=== PATIENT | female | born 1955 | race Caucasian/White ===

== ENCOUNTER 2017-09-10 01:55 | Emergency (ER) | payer OTHER ==
[2017-09-10] MEDS ORDERED: NS 0.9% 1000 ML* 1,000 ML IV ONE ×2 (02:22→03:16)
[2017-09-10] MEDS ORDERED: Metoclopramide IV* 5 MG/ML 2 ML VIAL IV SLOW PU ONE (02:22)
[2017-09-10 02:59] LABS: ABS Basophils 0.1 10^3/ul (0-0.2); ABS Eosinophils 0 10^3/ul (0-0.6); ABS Lymphocytes 1.1 10^3/ul (1.0-4.8); ABS Monocytes 0.7 10^3/ul (0-0.8); ABS Neutrophils 6.3 10^3/ul (1.5-7.7); Hematocrit 33 % (35-47); Hemoglobin 11.5 g/dl (12.0-16.0); Mean Corpuscular HGB Conc 35 g/dl (31-36); Mean Corpuscular Hemoglobin 38 pg (27-31); Mean Corpuscular Volume 108 fL (80-97); Mean Platelet Volume 7.4 um3 (7.4-10.4); Platelet Count 170 10^3/ul (150-450); Red Blood Count 3.03 10^6/ul (4.00-5.40); Red Cell Distribution Width 13 % (10.5-15); White Blood Count 8.1 10^3/ul (3.5-10.8)
[2017-09-10 02:59] LABS: INR 1.24 (0.77-1.02)
[2017-09-10 03:10] LABS: ABS Nucleated RBC 0 10^3/ul; Eosinophil % 0.1 % (0-6); Lymphocyte % 13.1 % (25-47); Nucleated Red Blood Cells % 0
[2017-09-10 03:11] LABS: EGFR Non-African American 103.3 (>60)
[2017-09-10] MEDS ORDERED: Potassium Chlor TAB* 20 MEQ TAB.ER PO ONE (03:26)
[2017-09-10] MEDS ORDERED: Iohexol 300* (CONTRAST) 10 ML SDV IV ONE (03:53)
[2017-09-10] MEDS ORDERED: NS 0.9% 1000 ML* 1,000 ML IV SCH (04:45)
[2017-09-10 05:04] LABS: Urine Appearance Clear; Urine Blood Negative (Negative); Urine Color Colorless; Urine Ketones Negative (Negative); Urine Protein Negative (Negative); Urine Specific Gravity 1.015 (1.010-1.030); Urine Urobilinogen Negative (Negative)
[2017-09-10 06:19] VITALS: BP 148/98
--- NOTE | 2017-09-10 06:22 | ED ---
Michelle Lim Jade, scribed for Ramona Coy MD on 09/10/17 at 0224 . GI/ HPI - HPI Summary HPI Summary: Pt is a 62 y/o female who presents to the ED c/o N/V/D for 2 days. She states she also has been having coffee ground emesis, decreased appetite, and intermittent 6/10 abdominal pain. Her symptoms have been worsening. Pt denies any fever, and has not taken any medications for her symptoms. PMHx HTN. - History of Current Complaint Chief Complaint: EDGIBleed Time Seen by Provider: 09/10/17 02:02 Stated Complaint: VOMITING Hx Obtained From: Patient Onset/Duration: Started Days Ago - 2, Worse Since Timing: Constant Current Severity: Moderate Pain Intensity: 6 Location of Pain: Diffuse - Abdominal Associated Signs and Symptoms: Positive: Hematemesis - Black, Nausea, Vomiting, Diarrhea, Change in Appetite - Decreased, Abdominal Pain. Negative: Fever Aggravating Factor(s): Nothing Alleviating Factor(s): Nothing - Allergy/Home Medications Allergies/Adverse Reactions: Allergies Allergy/AdvReac Type Severity Reaction Status Date / Time Penicillins Allergy Swelling Verified 09/10/17 01:59 Home Medications: Home Medications NK [No Home Medications Reported] 09/10/17 [History Confirmed 09/10/17] PMH/Surg Hx/FS Hx/Imm Hx Cardiovascular History: Reports: Other Cardiovascular Problems/Disorders - Unknown - will not see a PCP Respiratory History: Reports: Other Respiratory Problems/Disorders - Bronchitis Infectious Disease History: No Infectious Disease History: Denies: Traveled Outside the [place] in Last 30 Days - Family History Known Family History: Positive: Cardiac Disease - Social History Alcohol Use: Daily Substance Use Type: Reports: None Smoking Status (MU): Current Every Day Smoker Review of Systems Negative: Fever Positive: Abdominal Pain, Vomiting, Diarrhea, Nausea, Other - Decreased appetite All Other Systems Reviewed And Are Negative: Yes Physical Exam - Summary Physical Exam Summary: VITAL SIGNS: Reviewed. GENERAL: Patient is a well-developed and nourished FEMALE who is lying comfortable in the stretcher. Patient is not in any acute respiratory distress. HEAD AND FACE: No signs of trauma. No ecchymosis, hematomas or skull depressions. No sinus tenderness. EYES: PERRLA, EOMI x 2, No injected conjunctiva, no nystagmus. EARS: Hearing grossly intact. Ear canals and tympanic membranes are within normal limits. MOUTH: Oropharynx within normal limits. NECK: Supple, trachea is midline, no adenopathy, no JVD, no carotid bruit, no c- spine tenderness, neck with full ROM. CHEST: Symmetric, no tenderness at palpation LUNGS: Clear to auscultation bilaterally. No wheezing or crackles. CVS: Regular rate and rhythm, S1 and S2 present, no murmurs or gallops appreciated. ABDOMEN: Soft, non-tender. No signs of distention. No rebound no guarding, and no masses palpated. Bowel sounds are normal. EXTREMITIES: FROM in all major joints, no edema, no cyanosis or clubbing. NEURO: Alert and oriented x 3. No acute neurological deficits. Speech is normal and follows commands. SKIN: Dry and warm RECTAL: No masses, no hemorrhoids. Empty rectum. Triage Information Reviewed: Yes Vital Signs On Initial Exam: Initial Vitals Temp Pulse Resp BP Pulse Ox 97.5 F 92 20 189/73 100 09/10/17 01:59 09/10/17 01:59 09/10/17 01:59 09/10/17 01:59 09/10/17 01:59 Vital Signs Reviewed: Yes Diagnostics - Vital Signs Vital Signs Temp Pulse Resp BP Pulse Ox 09/10/17 01:59 97.5 F 92 20 189/73 100 - Laboratory Result Diagrams: 09/10/17 02:39 09/10/17 02:38 Lab Statement: Any lab studies that have been ordered have been reviewed, and results considered in the medical decision making process. - CT CT A/P CT Interpretation: No Acute Changes - 4:31 There is no acute abdominal or pelvis process. ED physician reviewed this imaging report. CT Interpretation Completed By: Bo COOPER Course/Dx - Course Course Of Treatment: Pt is a 62 y/o female c/o N/V/D, coffee ground emesis, decreased appetite, and abdominal pain for 2 days. Her symptoms have been worsening, and she denies any fever. A physical exam was normal. A rectal exam revealed no masses, no hemorrhoids, and empty rectum. A CT A/P revealed no acute process. Final dx is gastroenteritis. Pt is discharged, and is agreeable with this plan. - Diagnoses Provider Diagnoses: Gastroenteritis Discharge - Sign-Out/Discharge Documenting (check all that apply): Discharge/Admit/Transfer - Discharge - Discharge Plan Condition: Stable Disposition: HOME Patient Education Materials: Gastroenteritis (ED) Referrals: [facility] [place] [facility] [Outside] - 2 Days Additional Instructions: RETURN TO THE EMERGENCY DEPARTMENT FOR CHANGING OR WORSENING SYMPTOMS The documentation as recorded by the Michelle rivero Jade accurately reflects the service I personally performed and the decisions made by me, Ramona Coy MD.
--- NOTE | 2017-09-10 07:43 | RAD ---
CLINICAL HISTORY: Abd pain COMPARISON: None TECHNIQUE: Multiple contiguous axial CT scans were obtained of the abdomen and pelvis after the administration of intravenous contrast. Coronal and sagittal multiplanar reformations are submitted for review. Oral contrast was not administered. Delayed images were obtained through the abdomen. FINDINGS: LUNG BASES: The lung bases are clear. LIVER: The liver is diffusely low in attenuation compared to the spleen. There are no focal hepatic parenchymal masses. BILE DUCTS: There is no intrahepatic or extrahepatic biliary dilatation. GALLBLADDER: The gallbladder is normal, without pericholecystic inflammatory change. PANCREAS: The pancreas is normal, without mass or ductal dilatation. SPLEEN: Normal in size and appearance. UPPER GI TRACT: Evaluation of the gastrointestinal tract is limited by incomplete gastric distention. The upper GI tract is unremarkable. SMALL BOWEL AND MESENTERY: The small bowel is normal in contour, course, and caliber. There is no obstruction or dilatation. COLON: The colon is normal in contour, course, caliber. There is no pericolonic inflammatory change. ADRENALS: Normal bilaterally. KIDNEYS: The kidneys are normal in shape, size, contour, and axis. There is no hydronephrosis or nephrolithiasis. BLADDER: The bladder is smooth in contour. PELVIC ORGANS: The uterus and adnexa are grossly normal for technique. AORTA: There is calcific atherosclerotic disease of the abdominal aorta and its branches, without aneurysmal dilatation IVC: Unremarkable LYMPH NODES: There is no lymphadenopathy by size criteria. ABDOMINAL WALL: There is no evidence for abdominal wall hernia. BONES AND SOFT TISSUES: There are bilateral pars defects at L5 with trace anterolisthesis of L5 on S1. OTHER: None IMPRESSION: 1. FATTY INFILTRATION OF THE LIVER. 2. ATHEROSCLEROSIS. 3. 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
== END 2017-09-10 06:17 | disposition home or self-care (01) ==
LOC: ED 01:55
DX: K52.9 Noninfective gastroenteritis and colitis, unspecified (principal); I10 Essential (primary) hypertension; F17.200 Nicotine dependence, unspecified, uncomplicated; Z88.0 Allergy status to penicillin
CPT/HCPCS: 36415; 74177; 80053; 81003; 82150; 83605; 83690; 83735; 85025; 85610; 85730; 86140; 96361; 96374; 99283; A9270-GY; J2765; Q9967

== ENCOUNTER 2017-12-24 16:14 | Emergency (ER) | payer OTHER ==
--- NOTE | 2017-12-24 17:13 | ED ---
Throat Pain/Nasal Congestion - HPI Summary HPI Summary: 62-year-old female presents with sinus congestion and ear pain for the past month. States it feels like a pressure. She denies any headache. She states she has Mnire's so has vertigo chronically. She admits to her chronic cough. She denies any chest pain or shortness breath. No fevers. States she's been trying Sudafed with minimal relief. she states that her neck feels swollen in her glands. She denies any history of allergies. No abdominal pain. No nausea vomiting. No one else sick. She denies any fatigue. No other symptoms. - History of Current Complaint Chief Complaint: EDGeneral Time Seen by Provider: 12/24/17 16:42 - Allergies/Home Medications Allergies/Adverse Reactions: Allergies Allergy/AdvReac Type Severity Reaction Status Date / Time ampicillin Allergy Swelling Verified 12/24/17 16:30 Penicillins Allergy Swelling Verified 12/24/17 16:30 PMH/Surg Hx/FS Hx/Imm Hx Endocrine/Hematology History: Denies: Hx Diabetes Cardiovascular History: Reports: Other Cardiovascular Problems/Disorders - Unknown - will not see a PCP Denies: Hx Hypertension Respiratory History: Reports: Other Respiratory Problems/Disorders - Bronchitis History: Denies: Hx Renal Disease EENT History: Reports: Other - menierre Infectious Disease History: No Infectious Disease History: Denies: Traveled Outside the [place] in Last 30 Days - Family History Known Family History: Positive: Cardiac Disease - Social History Alcohol Use: Daily Alcohol Amount: beer 6 to 8 per day Substance Use Type: Reports: None Smoking Status (MU): Heavy Every Day Tobacco Smoker Review of Systems Negative: Fever Positive: Ear Ache, Nasal Discharge Negative: Chest Pain Positive: Cough - chronic. Negative: Shortness Of Breath All Other Systems Reviewed And Are Negative: Yes Physical Exam Triage Information Reviewed: Yes Vital Signs On Initial Exam: Initial Vitals Temp Pulse Resp BP Pulse Ox 97.2 F 79 16 163/76 99 12/24/17 16:16 12/24/17 16:16 12/24/17 16:16 12/24/17 16:16 12/24/17 16:16 Vital Signs Reviewed: Yes Appearance: Positive: Well-Appearing Skin: Positive: Warm, Dry Head/Face: Positive: Normal Head/Face Inspection Eyes: Positive: Normal, EOMI, HETAL, Conjunctiva Clear ENT: Positive: Pharynx normal, Nasal congestion, TMs normal - fluids behind, Sinus tenderness Neck: Positive: Supple, Nontender, No Lymphadenopathy Respiratory/Lung Sounds: Positive: Clear to Auscultation, Breath Sounds Present Cardiovascular: Positive: Normal, RRR Abdomen Description: Positive: Nontender, Soft Bowel Sounds: Positive: Present Musculoskeletal: Positive: Normal Neurological: Positive: Normal Psychiatric: Positive: Normal Diagnostics - Vital Signs Vital Signs Temp Pulse Resp BP Pulse Ox 12/24/17 16:16 97.2 F 79 16 163/76 99 - Laboratory Lab Statement: Any lab studies that have been ordered have been reviewed, and results considered in the medical decision making process. EENT Course/Dx - Course Course Of Treatment: 62-year-old female presents with sinus congestion and ear pain for the past month. States it feels like a pressure. She denies any headache. She states she has Mnire's so has vertigo chronically. She admits to her chronic cough. She denies any chest pain or shortness breath. No fevers. States she's been trying Sudafed with minimal relief. she states that her neck feels swollen in her glands. She denies any history of allergies. No abdominal pain. No nausea vomiting. No one else sick. She denies any fatigue. No other symptoms. On exam tenderness over sinuses. Ears TMs normal with fluid behind. Will treat with Flonase and azithromycin for sinus infection. patient decline chest xray. told to get primary to follow up. Patient understands agrees with plan. - Differential Diagnoses Differential Diagnoses: Otitis Media, Sinusitis, URI/Bronchitis - Diagnoses Provider Diagnoses: Sinusitis Discharge - Sign-Out/Discharge Documenting (check all that apply): Patient Departure - Discharge Plan Condition: Good Disposition: HOME Prescriptions: Azithromycin TAB* [Zithromax TAB (Z-GIOVANY) 250 mg #6 tabs] 250 mg PO DAILY #4 tab Patient Education Materials: Sinusitis (ED) [place]: [facility] [place] [facility] [place]] Additional Instructions: It is important that you establish care with a primary to follow up about symptoms take antibiotics once a day for 4 more days Use intranasal steroid one spray each nostril twice a day Take Tylenol every 6 hours as needed for pain Return to ED if develop any new or worsening symptoms - Billing Disposition and Condition Condition: GOOD Disposition: Home
[2017-12-24] MEDS ORDERED: Azithromycin TAB* 250 MG PO ONE (17:31)
[2017-12-24 17:44] VITALS: BP 107/57
== END 2017-12-24 17:43 | disposition home or self-care (01) ==
LOC: ED 16:14
DX: J32.9 Chronic sinusitis, unspecified (principal); Z88.0 Allergy status to penicillin; F17.200 Nicotine dependence, unspecified, uncomplicated
CPT/HCPCS: 99282; A9270-GY

== ENCOUNTER 2018-07-04 11:15 | Emergency (ER) | payer OTHER ==
--- NOTE | 2018-07-04 13:14 | ED ---
Adult Trauma - HPI Summary HPI Summary: Pt is a 63 y/o F presenting to the ED with a chief complaint of falls. She states she usually watches television in the kitchen, and she falls asleep while watching. She reports hitting her head twice, twisting her ankle, and myalgias in her L-sided ribs, neck, back, and L arm. She states her L wrist is very weak. She denies LOC when falling. She also states these falls have occurred more frequently since being dxed with throat CA. - History of Current Complaint Chief Complaint: EDFall Stated Complaint: RIB INJURY PER RADIOLOGY Time Seen by Provider: 07/04/18 12:42 Hx Obtained From: Patient Mechanism of Injury: Fall Ambulatory at the Scene: Yes Loss of Consciousness: no loss of consciousness Onset Severity: Moderate Current Severity: Moderate Pain Intensity: 8 Pain Scale Used: 0-10 Numeric Location: Neck, Chest - ribs, Back, Extremities Character: Sharp Aggravating Factor(s): Movement Alleviating Factor(s): Nothing Associated Signs & Symptoms: Positive: Numbness/Weakness - L hand, Ecchymosis. Negative: Loss of Consciousness - Allergy/Home Medications Allergies/Adverse Reactions: Allergies Allergy/AdvReac Type Severity Reaction Status Date / Time ampicillin Allergy Swelling Verified 04/05/18 12:45 ibuprofen Allergy Swelling Verified 07/04/18 11:24 Penicillins Allergy Swelling Verified 04/05/18 12:45 Home Medications: Home Medications Prednisolone Acetate/Pf [Prednisolone Acet 1% Eye Drop] 5 ml OPHTHALMIC DAILY [History Confirmed 07/04/18] PMH/Surg Hx/FS Hx/Imm Hx Previously Healthy: No Endocrine/Hematology History: Denies: Hx Diabetes Cardiovascular History: Reports: Other Cardiovascular Problems/Disorders - Unknown - will not see a PCP Denies: Hx Hypertension Respiratory History: Reports: Other Respiratory Problems/Disorders - Bronchitis History: Denies: Hx Renal Disease Infectious Disease History: No Infectious Disease History: Denies: Traveled Outside the [place] in Last 30 Days - Family History Known Family History: Positive: Cardiac Disease - Social History Alcohol Use: Daily Alcohol Amount: beer 6 to 8 per day; wine coolers 2-3 a day Hx Substance Use: No Substance Use Type: Reports: None Hx Tobacco Use: Yes Smoking Status (MU): Heavy Every Day Tobacco Smoker Review of Systems Positive: Myalgia Positive: Bruising Positive: Weakness All Other Systems Reviewed And Are Negative: Yes Physical Exam - Summary Physical Exam Summary: Appearance: The patient is well-nourished in no acute distress and in no acute pain. Skin: The skin is warm and dry and skin color reflects adequate perfusion. HEENT: The head is normocephalic and atraumatic. The pupils are equal and reactive. The conjunctivae are clear and without drainage. Nares are patent and without drainage. Mouth reveals moist mucous membranes and the throat is without erythema and exudate. The external ears are intact. The ear canals are patent and without drainage. The tympanic membranes are intact. Neck: The neck is supple with full range of motion and non-tender. There are no carotid bruits. There is no neck vein distension. Respiratory: Chest is non-tender. Lungs are clear to auscultation and breath sounds are symmetrical and equal. Cardiovascular: Heart is regular rate and rhythm. There is no murmur or rub auscultated. There is no peripheral edema and pulses are symmetrical and equal. Abdomen: The abdomen is soft and non-tender. There are normal bowel sounds heard in all four quadrants and there is no organomegaly palpated. Musculoskeletal: Her LUE is weak to forearm extensors and vice president of brand management. There is good capillary refill. There is no peripheral edema or calf tenderness elicited. Pt is tender over L posterior axillary line, and tender in the L rhomboid area. Neurological: Patient is alert and oriented to person, place and time. The patient has symmetrical motor strength in all four extremities. Cranial nerves are grossly intact. Deep tendon reflexes are symmetrical and equal in all four extremities. Psychiatric: The patient has an appropriate affect and does not exhibit any anxiety or depression. Triage Information Reviewed: Yes Vital Signs On Initial Exam: Initial Vitals Temp Pulse Resp BP Pulse Ox 98.6 F 82 16 164/93 98 07/04/18 11:19 07/04/18 11:19 07/04/18 11:19 07/04/18 11:19 07/04/18 11:19 Vital Signs Reviewed: Yes Diagnostics - Vital Signs Vital Signs Temp Pulse Resp BP Pulse Ox 07/04/18 11:19 98.6 F 82 16 164/93 98 - Laboratory Result Diagrams: 07/04/18 13:42 07/04/18 13:42 Lab Statement: Any lab studies that have been ordered have been reviewed, and results considered in the medical decision making process. - Radiology CXR Radiology Interpretation Completed By: Radiologist Summary of Radiographic Findings: No active cardiopulmonary disease is noted. ED physician has reviewed this report. - CT C-spine CT CT Interpretation Completed By: Radiologist Summary of CT Findings: 1. DEGENERATIVE DISC DISEASE AND OSTEOARTHRITIS. 2. ATHEROSCLEROSIS. 3. NO ACUTE OSSEOUS INJURY TO THE CERVICAL SPINE. ED physician has reviewed this report. Brain CT CT Interpretation Completed By: Radiologist Summary of CT Findings: NO ACUTE INTRACRANIAL PATHOLOGY. CHRONIC SMALL VESSEL ISCHEMIC CHANGE. ED physician has reviewed this report. Adult Trauma Course/Dx - Course Course Of Treatment: Ms. Morales presented to the emergency department with several different complaints. It was hard to get a coherent history from her. She states that she normally watches TV at night in the kitchen in her wheelchair and sometimes she falls asleep and falls out of the wheelchair. She says now she's got a wheelchair fixed up so that won't happen. The last time she fell was 2 nights ago and she said she landed on her face. She comes in complaining of pain in her left posterior chest which she describes as ribs. She is complaining of pain in her left wrist and having twisted her ankle although it doesn't hurt. Almost as an aside she complains that her left arm isn't working very well. Her left wrist and left ankle were not swollen or tender. She was tender in the left rhomboid area as well as left posterior axillary line on her chest. She had a wrist drop. She was unable to extend at the wrist and her vice president of brand management was weak. She could flex at the wrist although weakly. She had good strength in biceps and triceps. Neurovascular were intact in the hand. A CT of her head and neck were obtained because of my concern that she has history of drinking and she fell 2 days ago. These were negative for any acute fracture. Labs were obtained and were within normal limits aside from a mildly elevated CRP. I spoke with Dr. Trivedi as this seems like a peripheral palsy. It's been there a couple of days and it's unclear how much she'll improve. He will see her on Saturday afternoon. - Diagnoses Provider Diagnoses: Rib contusion, Axillary nerve palsy Discharge - Sign-Out/Discharge Documenting (check all that apply): Patient Departure Patient Received Moderate/Deep Sedation with Procedure: No - Discharge Plan Condition: Stable Disposition: HOME Prescriptions: oxyCODONE/Acetamin 5/325 MG* [Percocet 5/325 TAB*] 1 tab PO Q6H PRN #20 tab MDD 4 PRN Reason: Pain Referrals: Waqas Trivedi MD [Medical Doctor] - Additional Instructions: You have an appointment with Dr. Trivedi on Saturday, July 07, at 1:00pm. Please take your prescribed medications as instructed. Follow up with your primary care provider within the next 2-3 days. Return to the ED with any new or worsening symptoms. - Billing Disposition and Condition Condition: STABLE Disposition: Home - Attestation Statements Document Initiated by Scribe: Yes Documenting Scribe: Hazel Anderson Provider For Whom Tom is Documenting (Include Credential): Jacques Conteh MD. Scribe Attestation: Hazel Lim, scribed for Jacques Conteh MD. on 07/04/18 at 1730. Scribe Documentation Reviewed: Yes Provider Attestation: The documentation as recorded by the Hazel rivero accurately reflects the service I personally performed and the decisions made by me, Jacques Conteh MD. Status of Scribe Document: Viewed Consult Consult: [id number] - Spoke with Dr. Trivedi about the pt's condition who will be seeing the pt on 07/07 as followup.
[2018-07-04 13:55] LABS: ABS Basophils 0.1 10^3/ul (0-0.2); ABS Eosinophils 0.1 10^3/ul (0-0.6); ABS Lymphocytes 1.2 10^3/ul (1.0-4.8); ABS Monocytes 0.7 10^3/ul (0-0.8); ABS Neutrophils 6.2 10^3/ul (1.5-7.7); ABS Nucleated RBC 0 10^3/ul; Eosinophil % 0.7 %; Hematocrit 38 % (33-41); Hemoglobin 12.9 g/dL (12.0-16.0); Mean Corpuscular HGB Conc 35 g/dL (31-36); Mean Corpuscular Hemoglobin 37 pg (27-31); Mean Corpuscular Volume 106 fL (80-97); Mean Platelet Volume 7.1 fL (7.4-10.4); Nucleated Red Blood Cells % 0; Platelet Count 307 10^3/uL (150-450); Red Blood Count 3.54 10^6 /uL (3.70-4.87); Red Cell Distribution Width 14 % (10.5-15); White Blood Count 8.2 10^3/uL (3.5-10.8)
[2018-07-04 14:07] LABS: INR 1.18 (0.82-1.09)
[2018-07-04 14:14] LABS: Albumin 3.3 g/dL (3.2-5.2); Albumin/Globulin Ratio 0.9 (1-3); BUN/Creatinine Ratio 7.1 (8-20); C Reactive Protein 7.8 mg/L (<8.01); Calcium 8.9 mg/dL (8.6-10.3); EGFR African American 184.4 (>60); EGFR Non-African American 152.4 (>60); Globulin 3.5 g/dL (2-4); Potassium 3.3 mmol/L (3.5-5.0); Total Bilirubin 0.5 mg/dL (0.2-1.0); Total Protein 6.8 g/dL (6.4-8.9)
[2018-07-04 15:49] VITALS: BP 153/70
== END 2018-07-04 15:49 | disposition home or self-care (01) ==
LOC: ED 11:15
DX: S20.219A Contusion of unspecified front wall of thorax, initial encounter (principal); S44.32XA Injury of axillary nerve, left arm, initial encounter; Z72.0 Tobacco use; W19.XXXA Unspecified fall, initial encounter; Y92.9 Unspecified place or not applicable; C14.0 Malignant neoplasm of pharynx, unspecified
CPT/HCPCS: 36415; 70450; 71046; 72125; 80053; 80320; 82140; 82550; 85025; 85610; 86140; 99283; G0480

== ENCOUNTER 2018-07-16 09:33 | Emergency (ER) | payer OTHER ==
--- OUTSIDE RECORDS SUMMARY | 2018-07-16 09:52 | XMS REPORT | Continuity of Care Document ---
:1955 External Reference #:[id number] Author Name Ruchi Moser Care Team Providers Name Role Phone Ej Zamarripa D.O. Primary Care Physician Unavailable Payers Date Identification Numbers Payment Provider Subscriber Policy Number: [id number] Moreno Morales PayID: [id number] [address] [place] [address] Advance Directives Description No Information Available Problems Active Problems Provider Date Tobacco use Aj Callejas, N.PDevan Onset: 07/07/2018 Alcohol abuse, uncomplicated Aj Callejas, N.P. Onset: 07/07/2018 Injury of radial nerve Aj Callejas, N.PDevan Onset: 07/07/2018 Family History Date Family Member(s) Observation Comments Father Congestive Heart Failure (CHF) Mother Heart Disease Mother Breast Cancer Siblings 3 Social History Type Date Description Comments Sex Unknown Lives With Occupation Unemployed Hand Dominance Right-handed ETOH Use consumes 3-4 beers per day Tobacco Use Start: Unknown Light tobacco smoker (10 or fewer cigarettes/day) Smoking Status Reviewed: 07/07/18 Light tobacco smoker (10 or fewer cigarettes/day) Exercise Type/Frequency Does not exercise Allergies, Adverse Reactions, Alerts Active Allergies Reaction Severity Comments Date Penicillin 07/07/2018 Ampicillin 07/07/2018 Ibu 07/07/2018 Inactive Allergies NKDA 07/07/2018 Medications Active Medications SIG Qnty Indications Ordering Date Provider Percocet 1 - 2 tabs by mouth Unknown 5-325mg Tablets every 4 - 6 hours as needed for pain. Benadryl Allergy take 1-2 tablets by Unknown 25mg mouth every night Capsules at bedtime as needed Acetaminophen give 20 milliliters Unknown every 4 hours as 325mg/10.15ML Solution needed for fever/pain Immunizations Description No Information Available Vital Signs Date Vital Result Comment 07/07/2018 1:18pm Height 62 inches 5'2" Weight 110.00 lb Heart Rate 82 /min BP Systolic 144 mmHg BP Diastolic 92 mmHg BMI (Body Mass Index) 20.1 kg/m2 Results Test Date Facility Test Result H/L Range Note Laboratory test 02/26/2018 [facility] Point of Care 95 mg/dL N 70-[address] [place] [address] [phone] 1 Retail Assistant Store Manager: [id number] Procedures Description No Information Available Encounters Description No Information Available Plan of Treatment Future Appointment(s):08/21/2018 1:00 pm - Aj Callejas [facility] at [facility]07/07/2018 - Aj Callejas [id number] Injury of radial nerve at upper arm level, unspecified arm,New Xrays:MRI Upper Extremity Left W/O, Ordered: 07/07/18New Therapy:Occupational TherapyPhysical TherapyFollow up:6 [id number] Alcohol abuse, [id number] Tobacco use
--- NOTE | 2018-07-16 10:17 | ED ---
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 Pt is at [facility] for a radiation treatment for throat CA this AM, and when she stepped out of her car, she had a mechanical fall onto the sidewalk. She fell on her R-side and she did hit her head but without LOC. She feels "jolted." She did receive her treatment prior to coming to the ED for evaluation. Associated sx: neck strain, R head pain, R shoulder pain. Denies: dizziness, CP. She has LUE pain for the past week from another fall. She says she's been falling more recently. 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 neg: dizziness. Negative: Chest Pain - Allergy/Home Medications Allergies/Adverse Reactions: Allergies Allergy/AdvReac Type Severity Reaction Status Date / Time ampicillin Allergy Swelling Verified 07/16/18 09:41 ibuprofen Allergy Swelling Verified 07/16/18 09:41 Penicillins Allergy Swelling Verified 07/16/18 09:41 Home Medications: Home Medications Aspirin 81 mg CHEW TAB* [Aspirin Low Dose TAB*] 81 mg PO DAILY 07/16/18 [ History Confirmed 07/16/18] diPHENhydraMINE PO* [Benadryl PO 25 MG TAB*] 25 mg PO BEDTIME PRN 07/16/18 [ History Confirmed 07/16/18] PMH/Surg Hx/FS Hx/Imm Hx Previously Healthy: No - throat CA Endocrine/Hematology History: Denies: Hx Diabetes Cardiovascular History: Reports: Other Cardiovascular Problems/Disorders - Unknown - will not see a PCP Denies: Hx Hypertension Respiratory History: Reports: Other Respiratory Problems/Disorders - Bronchitis History: Denies: Hx Renal Disease - Cancer History Cancer Type, Location and Year: throat CA Infectious Disease History: No Infectious Disease History: Denies: Traveled Outside the [place] in Last 30 Days - Family History Known Family History: Positive: Cardiac Disease - Social History Occupation: Unemployed Lives: With Family Alcohol Use: Daily Alcohol Amount: beer 6 to 8 per day; wine coolers 2-3 a day Hx Substance Use: No Substance Use Type: Reports: None Hx Tobacco Use: Yes Smoking Status (MU): Heavy Every Day Tobacco Smoker Review of Systems Negative: Chest Pain Musculoskeletal: Other - pos: R shoulder pain, R head pain, neck strain Neurological: Other - neg: dizziness Negative: Syncope - neg: LOC All Other Systems Reviewed And Are Negative: Yes Physical Exam - Summary Physical Exam Summary: Constitutional: Well-developed, Well-nourished, Alert. (-) Distressed Skin: Warm, Dry, Multiple bruises diffusely of all ages HENT: Normocephalic; Bruise on scalp just posterior to R druze Eyes: Conjunctiva normal, EOMI, PERRL Neck: Musculoskeletal ROM normal neck. (-) JVD, (-) Stridor, (-) Tracheal deviation, TTP of lateral left muscles. C-spine apears OK. Cardio: Rhythm regular, rate normal, Heart sounds normal; Intact distal pulses; The pedal pulses are 2+ and symmetric. Radial pulses are 2+ and symmetric. (-) Murmur Pulmonary/Chest wall: Effort normal. (-) Respiratory distress, (-) Wheezes, (-) Rales Abd: Soft, (-) tenderness, (-) Distension, (-) Guarding, (-) Rebound Musculoskeletal: No pelvic instability, no TTP of pelvis. Bruising on bilat knees and old abrasion on R knee. 2+ pitting edema bilaterally. TTP of R humerus. T-spine and L-spine appears OK. Good strength. Lymph: (-) Cervical adenopathy Neuro: Alert, Oriented x3 Psych: Mood and affect Normal Triage Information Reviewed: Yes Vital Signs On Initial Exam: Initial Vitals Temp Pulse Resp BP Pulse Ox 99.4 F 88 16 155/76 100 07/16/18 09:37 07/16/18 09:37 07/16/18 09:37 07/16/18 09:37 07/16/18 09:37 Vital Signs Reviewed: Yes - Bravo Coma Scale Best Eye Response: 4 - Spontaneous Best Motor Response: 6 - Obeys Commands Best Verbal Response: 5 - Oriented Coma Scale Total: 15 Diagnostics - Vital Signs Vital Signs Temp Pulse Resp BP Pulse Ox 07/16/18 09:37 99.4 F 88 16 155/76 100 - Laboratory Lab Statement: Any lab studies that have been ordered have been reviewed, and results considered in the medical decision making process. - Radiology R Humerus XR Radiology Interpretation Completed By: Radiologist Summary of Radiographic Findings: IMPRESSION: OSTEOPENIA. NO ACUTE OSSEOUS INJURY. THE DEGREE OF OSTEOPENIA MAY MAKE A NONDISPLACED FRACTURE. RADIOGRAPHICALLY OCCULT. IF SYMPTOMS PERSIST, RECOMMEND REPEAT IMAGING. ED provider has reviewed this report. - CT BRAIN CT CT Interpretation Completed By: Radiologist Summary of CT Findings: IMPRESSION: No acute intracranial pathology. ED provider has reviewed this report. C-SPINE CT CT Interpretation Completed By: Radiologist Summary of CT Findings: IMPRESSION: OSTEOPENIA. STABLE DEGENERATIVE CHANGES. NO ACUTE OSSEOUS INJURY TO THE CERVICAL SPINE. Re-Evaluation - Re-Evaluation 1 Re-Evaluation Time: 11:23 Change: Improved Comment: Discussing results with patient and plans for discharge. 2 Re-Evaluation Time: 11:27 Change: Unchanged Comment: Addressing patient's vitals: 100.1 F. 3 Re-Evaluation Time: 11:51 Change: Unchanged Comment: Oral temp is 99.2 F. Will discharge patient home. Adult Trauma Course/Dx - Course Course Of Treatment: Patient is a 63 y/o F presenting s/p mechanical fall in [facility] parking lot. Pt is here for a radiation treatment for throat CA, which she did have prior to ED evaluation. She fell on her R-side hitting her head but denies LOC. PE finds multiple bruises diffusely of all ages; bruise on scalp just posterior to R druze; EOMI, PERRL; TTP of lateral left muscles, C-spine apears OK; there is no pelvic instability, no TTP of pelvis, 2+ pitting edema bilaterally, TTP of R humerus, T-spine and L-spine appears OK. Brain CT is negative. R humerus XR shows "OSTEOPENIA. NO ACUTE OSSEOUS INJURY. THE DEGREE OF OSTEOPENIA MAY MAKE A NONDISPLACED FRACTURE RADIOGRAPHICALLY OCCULT." C- Spine CT shows "OSTEOPENIA. STABLE DEGENERATIVE CHANGES. NO ACUTE OSSEOUS INJURY TO THE CERVICAL SPINE.". No medications given in ED. Will discharge patient home to f/u with PCP. - Diagnoses Provider Diagnoses: Head injury, Neck strain, Contusion of right arm Discharge - Sign-Out/Discharge Documenting (check all that apply): Patient Departure - D/C Patient Received Moderate/Deep Sedation with Procedure: No - Discharge Plan Condition: Stable Disposition: HOME Patient Education Materials: Cervical Strain (ED), Head Injury (ED), Scalp Contusion in Adults (ED) Print Language: SLOVENIAN Referrals: No Primary Care Phys,NOPCP [Primary Care Provider] - - Billing Disposition and Condition Condition: STABLE Disposition: Home - Attestation Statements Document Initiated by Scribe: Yes Documenting Scribe: Richi Boateng Provider For Whom Cathyibki is Documenting (Include Credential): Dr. Gabi South MD Scribe Attestation: Richi Lim, scribed for Dr. Gabi South MD on at 1558. Scribe Documentation Reviewed: Yes Provider Attestation: The documentation as recorded by the Richi rivero accurately reflects the service I personally performed and the decisions made by me, Dr. Gabi South MD Status of Scribe Document: Viewed
[2018-07-16 12:16] VITALS: BP 137/59
== END 2018-07-16 12:15 | disposition home or self-care (01) ==
LOC: ED 09:33
DX: S09.90XA Unspecified injury of head, initial encounter (principal); S16.1XXA Strain of muscle, fascia and tendon at neck level, initial encounter; S40.021A Contusion of right upper arm, initial encounter; W01.0XXA Fall on same level from slipping, tripping and stumbling without subsequent striking against object, initial encounter; Y93.01 Activity, walking, marching and hiking; Y92.481 Parking lot as the place of occurrence of the external cause; C14.0 Malignant neoplasm of pharynx, unspecified; M85.80 Other specified disorders of bone density and structure, unspecified site; F17.210 Nicotine dependence, cigarettes, uncomplicated; Z79.899 Other long term (current) drug therapy; Z88.3 Allergy status to other anti-infective agents; Z88.6 Allergy status to analgesic agent; Z88.0 Allergy status to penicillin; Z79.82 Long term (current) use of aspirin
CPT/HCPCS: 70450; 72125; 99282

== ENCOUNTER 2018-08-22 12:58 | Emergency (ER) | payer OTHER ==
--- NOTE | 2018-08-22 13:23 | ED ---
Adult Trauma - HPI Summary HPI Summary: Pt is a 63 y/o F presenting to the ED brought in by EMS for a fall. She states she fell about 0800 this morning in the kitchen when she was going to get coffee , and hit her head. She also reports some pain in her extremities. She notes she is currently being treated for throat cancer, she just finished radiation recently, and she is not on chemotherapy. Dr. Waldron is her oncologist. They took her to radiology today because of the fall, and they advised that she come into the ED. - History of Current Complaint Chief Complaint: EDFall Stated Complaint: FELL/SWELLING IN LEGS/HEAD INJ PER PT Time Seen by Provider: 08/22/18 13:09 Hx Obtained From: Patient Mechanism of Injury: Fall Loss of Consciousness: no loss of consciousness Onset/Duration: Started Hours Ago, Still Present Onset of Pain: Immediate Onset Severity: Moderate Current Severity: Mild Pain Intensity: 2 Pain Scale Used: 0-10 Numeric Location: Head, Extremities Character: Aching Aggravating Factor(s): Nothing Alleviating Factor(s): Nothing Associated Signs & Symptoms: Positive: Ecchymosis. Negative: Loss of Consciousness - Allergy/Home Medications Allergies/Adverse Reactions: Allergies Allergy/AdvReac Type Severity Reaction Status Date / Time ampicillin Allergy Swelling Verified 08/22/18 13:14 ibuprofen Allergy Swelling Verified 08/22/18 13:14 Penicillins Allergy Swelling Verified 08/22/18 13:14 PMH/Surg Hx/FS Hx/Imm Hx Previously Healthy: Yes Endocrine/Hematology History: Denies: Hx Diabetes Cardiovascular History: Reports: Other Cardiovascular Problems/Disorders - Unknown - will not see a PCP Denies: Hx Hypertension Respiratory History: Reports: Other Respiratory Problems/Disorders - Bronchitis History: Denies: Hx Renal Disease - Cancer History Cancer Type, Location and Year: throat CA Infectious Disease History: No Infectious Disease History: Denies: Traveled Outside the [place] in Last 30 Days - Family History Known Family History: Positive: Cardiac Disease - Social History Alcohol Use: Daily Alcohol Amount: beer 6 to 8 per day; wine coolers 2-3 a day Hx Substance Use: No Substance Use Type: Reports: None Hx Tobacco Use: Yes Smoking Status (MU): Heavy Every Day Tobacco Smoker Review of Systems Positive: Other - hit her head Positive: Myalgia - extremities Positive: Headache - hit her head All Other Systems Reviewed And Are Negative: Yes Physical Exam - Summary Physical Exam Summary: Appearance: Well-appearing, Well-nourished, lying in bed comfortably Skin: Warm, dry, no obvious rash. Hematoma on R parietal skull. Eyes: sclera anicteric, no conjunctival pallor ENT: mucous membranes moist, pharynx appears normal Neck: Supple, nontender, inflammatory reaction on the L side of her neck with some vasiculation. Respiratory: Clear to auscultation, no signs of respiratory distress Cardiovascular: Normal S1, S2. No murmurs. Normal distal pulses in tibial and radial bilaterally. Abdomen: Soft, nontender, normal active bowel sounds present Musculoskeletal: Normal, Strength/ROM Intact. Neurological: A&Ox3, awake and alert, mentation is normal, speech is fluent and appropriate Psychiatric: affect is normal, does not appear anxious or depressed Triage Information Reviewed: Yes Vital Signs On Initial Exam: Initial Vitals Temp Pulse Resp BP Pulse Ox 99.1 F 89 18 144/66 100 08/22/18 13:00 08/22/18 13:00 08/22/18 13:00 08/22/18 13:00 08/22/18 13:00 Vital Signs Reviewed: Yes - Bravo Coma Scale Best Eye Response: 4 - Spontaneous Best Motor Response: 6 - Obeys Commands Best Verbal Response: 5 - Oriented Coma Scale Total: 15 Diagnostics - Vital Signs Vital Signs Temp Pulse Resp BP Pulse Ox 08/22/18 13:00 99.1 F 89 18 144/66 100 - Laboratory Result Diagrams: 08/22/18 13:26 08/22/18 13:26 Lab Statement: Any lab studies that have been ordered have been reviewed, and results considered in the medical decision making process. - CT Brain CT CT Interpretation Completed By: Radiologist Summary of CT Findings: No acute intracranial pathology. ED physician has reviewed this report. - Ultrasound Venous Doppler Study Ultrasound Interpretation Completed By: Radiologist Summary of Ultrasound Findings: Negative for right or left LE DVT. ED physician has reviewed this report. Adult Trauma Course/Dx - Course Course Of Treatment: Pt is a 63 y/o F presenting to the ED brought in by EMS for a fall. She states she fell about 0800 this morning in the kitchen when she was going to get coffee, and hit her head. She also reports some pain in her extremities. She notes she just finished a round of radiation for throat cancer. Dr. Waldron is her oncologist. Brain CT shows no evidence for acute intracranial abnormality. [id number] Waldron of radiation oncology about the pts condition. He states he sent her over to ensure she was okay from the fall, and that he expects her to still be weak and fatigued from the radiation. Venous Doppler Study shows: Negative for right or left LE DVT. The pt will be d/c'ed with dx including fall, head injury, and generalized weakness. She is stable and agreeable with this plan. - Diagnoses Provider Diagnoses: Fall, Head injury, Generalized weakness Discharge - Sign-Out/Discharge Documenting (check all that apply): Patient Departure Patient Received Moderate/Deep Sedation with Procedure: No - Discharge Plan Condition: Good Disposition: HOME Patient Education Materials: Fall Prevention for Older Adults (ED), Head Injury (ED) Referrals: Vj Waldron MD [Medical Doctor] - 3 Days - Billing Disposition and Condition Condition: GOOD Disposition: Home - Attestation Statements Document Initiated by Scribe: Yes Documenting Scribe: Hazel Anderson Provider For Whom Cathyibe is Documenting (Include Credential): Jacques Bales MD. Scribe Attestation: I, Hazel Anderson, scribed for Jacques Bales MD. on 08/23/18 at 1014. Scribe Documentation Reviewed: Yes Provider Attestation: The documentation as recorded by the scribe, Hazel Anderson accurately reflects the service I personally performed and the decisions made by me, Jacques Bales MD. Status of Scribe Document: Viewed Consult Consult: [id number] Waldron of radiation oncology about the pts condition. He states he sent her over to ensure she was okay from the fall, and that he expects her to still be weak and fatigued from the radiation.
[2018-08-22 13:37] LABS: Hematocrit 33 % (35-47); Hemoglobin 11.5 g/dL (12.0-16.0); Mean Corpuscular HGB Conc 35 g/dL (31-36); Mean Corpuscular Hemoglobin 36 pg (27-31); Mean Corpuscular Volume 102 fL (80-97); Mean Platelet Volume 6.3 fL (7.4-10.4); Platelet Count 271 10^3/uL (150-450); Red Cell Distribution Width 13 % (10-15); White Blood Count 3.8 10^3/uL (3.5-10.8)
[2018-08-22 13:57] LABS: ALT 8 U/L (7-52); AST 14 U/L (13-39); Albumin 2.9 g/dL (3.2-5.2); Albumin/Globulin Ratio 0.8 (1-3); Alkaline Phosphatase 95 U/L (34-104); Anion Gap 4 mmol/L (2-11); BUN/Creatinine Ratio 14.3 (8-20); Blood Urea Nitrogen 5 mg/dL (6-24); CO2 Carbon Dioxide 31 mmol/L (22-32); Calcium 9.1 mg/dL (8.6-10.3); Chloride 101 mmol/L (101-111); EGFR African American 227.6 (>60); EGFR Non-African American 188.1 (>60); Globulin 3.5 g/dL (2-4); Glucose 124 mg/dL (70-100); Potassium 3.8 mmol/L (3.5-5.0); Sodium 136 mmol/L (135-145); Total Protein 6.4 g/dL (6.4-8.9)
[2018-08-22 14:16] LABS: Alcohol < 10 mg/dL (<10)
[2018-08-22 14:35] LABS: ABS Eosinophils 0.1 10^3/ul (0-0.6); ABS Lymphocytes 0.3 10^3/ul (1.0-4.8); ABS Monocytes 0.9 10^3/ul (0-0.8); ABS Neutrophils 2.6 10^3/ul (1.5-7.7); Eosinophil % 1.7 %; Lymphocyte % 7.5 %; Nucleated Red Blood Cells % 0.1
[2018-08-22 15:57] LABS: Urine Appearance Clear; Urine Bilirubin Negative (Negative); Urine Blood Negative (Negative); Urine Color Yellow; Urine Glucose Negative (Negative); Urine Ketones Negative (Negative); Urine Nitrite Negative (Negative); Urine Protein Negative (Negative); Urine Specific Gravity 1.004 (1.010-1.030); Urine Urobilinogen Negative (Negative)
[2018-08-22 18:48] VITALS: BP 114/86
== END 2018-08-22 18:47 | disposition home or self-care (01) ==
LOC: ED 12:58
DX: S09.90XA Unspecified injury of head, initial encounter (principal); R53.1 Weakness; C14.0 Malignant neoplasm of pharynx, unspecified; F17.290 Nicotine dependence, other tobacco product, uncomplicated; W19.XXXA Unspecified fall, initial encounter; Y92.000 Kitchen of unspecified non-institutional (private) residence as the place of occurrence of the external cause
CPT/HCPCS: 36415; 70450; 80053; 80320; 81003; 85025; 85060; 93970; 99283; G0480

== ENCOUNTER 2021-02-22 12:15 | Inpatient (IN) ==
[~2021-02-22 12:15] MED LIST: Magnesium Sulfate 2 gm BAG 0 GM/0 ML BAG ONE; Rocuronium 50 mg VIAL 10 mg/ml 5 ml VIAL (50 mg) ONE; Succinylcholine 200 mg VIAL 20 mg/ml 10 ml VIAL (200 mg) ONE
[2021-02-22] MEDS ORDERED: Naloxone 0.4 mg VIAL 0.4 mg/ml 1 ml VIAL ONE (12:18)
[2021-02-22] MEDS ORDERED: .Amiodarone 24HR ONLY IV Protocol Order Note IV ONE (12:26)
[2021-02-22] MEDS ORDERED: Amiodarone 150 mg IVPREMIX 150 MG/100 ML BAG IV ONE (12:26)
[2021-02-22] MEDS ORDERED: Etomidate 40 mg/20 ml (2 MG/ML) 20 ml VIAL (40 mg) ONE (12:31)
[2021-02-22] MEDS ORDERED: Succinylcholine 200 mg VIAL 20 mg/ml 10 ml VIAL (200 mg) ONE (12:32)
[2021-02-22 12:36] LABS: PCO2 Arterial 44 mmHg (35-45)
[2021-02-22] MEDS ORDERED: Propofol 10 mg/ml 100 ML BTL 100 ML ONE (12:37)
[2021-02-22] MEDS ORDERED: Amiodarone 360 MG IVPREMIX 360 MG/200 ML BAG IV SCH ×2 (12:40→18:40)
[2021-02-22] MEDS ORDERED: Propofol 10 mg/ml 100 ML BTL 100 ML IV ONE (12:40)
[2021-02-22 13:01] LABS: PO2 Arterial 56 mmHg (80-100)
[2021-02-22 13:05] LABS: ABS Basophils 0.1 10^3/ul (0-0.2); ABS Eosinophils 0.2 10^3/ul (0-0.6); ABS Lymphocytes 0.2 10^3/ul (1.0-4.8); ABS Monocytes 0.3 10^3/ul (0-0.8); ABS Neutrophils 14.3 10^3/ul (1.5-7.7); Eosinophil % 1.1 %; Hematocrit 37 % (35-47); Hemoglobin 13.2 g/dL (12.0-16.0); Lymphocyte % 1.5 %; Mean Corpuscular HGB Conc 35 g/dL (31-36); Mean Corpuscular Hemoglobin 38 pg (27-31); Mean Corpuscular Volume 108 fL (80-97); Mean Platelet Volume 8.1 fL (7.4-10.4); Platelet Count 126 10^3/uL (150-450); Red Blood Count 3.44 10^6 /uL (3.70-4.87); Red Cell Distribution Width 13 % (10-15)
[2021-02-22 13:09] LABS: Albumin 1.8 g/dL (3.2-5.2); Calcium 6.9 mg/dL (8.6-10.3); Chloride 70 mmol/L (101-111); Magnesium 1.3 mg/dL (1.9-2.7); Sodium 124 mmol/L (135-145)
[2021-02-22 13:15] LABS: ALT 22 U/L (7-52); Albumin/Globulin Ratio 0.7 (1-3); Alkaline Phosphatase 167 U/L (35-149); Blood Urea Nitrogen 10 mg/dL (6-24); Globulin 2.7 g/dL (2-4); Glucose 150 mg/dL (70-100); Total Protein 4.5 g/dL (6.4-8.9); eGFR CKD-EPI 96.3 (>60)
[2021-02-22] MEDS ORDERED: Magnesium Sulf 4 GM/100 ML IV 4,000 MG/100 ML BAG IVPB ONE (13:15)
[2021-02-22 13:24] LABS: CO2 Carbon Dioxide 42 mmol/L (22-32)
[2021-02-22 13:25] LABS: Troponin I 0.04 ng/mL (<0.03)
[2021-02-22 13:26] LABS: Anion Gap 12 mmol/L (2-11)
[2021-02-22] MEDS ORDERED: Cefepime 2 GM in Dextrose 2 GM/50 ML BAG IV ONE (13:32)
[2021-02-22 13:57] LABS: Urine Appearance Cloudy; Urine Bilirubin 2+ (Negative); Urine Blood 2+ (Negative); Urine Color Amber; Urine Glucose Negative (Negative); Urine Ketones Negative (Negative); Urine Nitrite Negative (Negative); Urine Protein 2+(100 mg/dL) (Negative); Urine Specific Gravity 1.019 (1.002-1.030); Urine Urobilinogen Positive (Negative)
[2021-02-22] MEDS ORDERED: Vancomycin 750 MG in NS 0.9% 250 ml 250 ML IVPB ONE (14:00)
[2021-02-22 14:03] LABS: Urine Amorphous Crystals Present (Absent); Urine Bacteria 1+ (Absent); Urine Red Blood Cell Trace(0-2/hpf) (Absent); Urine Squamous Epithelial Cell Present (Absent); Urine White Blood Cell 2+(11-20/hpf) (Absent)
[2021-02-22 14:16] LABS: Urine Benzodiazepine Screen None Detected (None Detect); Urine Cannabinoids Screen None Detected (None Detect); Urine Opiates Screen None Detected (None Detect)
[2021-02-22] MEDS ORDERED: Iohexol 300 (CONTRAST) 10 ML SDV IV ONE (14:23)
[2021-02-22 15:10] LABS: TSH Ultra Thyroid Stim Horm 4.49 mcIU/mL (0.34-5.60)
[2021-02-22 15:21] LABS: Alcohol, S < 13 mg/dL (<13)
[2021-02-22 16:25] LABS: INR 2.66 (0.86-1.15)
[2021-02-22 16:29] LABS: PCO2 Arterial 44 mmHg (35-45); PO2 Arterial 63 mmHg (80-100)
[2021-02-22] MEDS ORDERED: NS 0.9% 1000 ml BAG 1,000 ML IV SCH (17:00)
[2021-02-22] MEDS ORDERED: Thiamine 100 MG/ML 2 ml VIAL 500 MG in NS 0.9% 250 ml 250 ML IV SCH (17:00)
[2021-02-22] MEDS ORDERED: Folic Acid 1 mg SYRINGE 0.2 ML SYRINGE IV SCH (17:00)
[2021-02-22 17:01] LABS: Potassium, Whole Blood 1.6 mmol/L (3.4-4.5)
[2021-02-22] MEDS: KCL 10 MEQ/50 ML IVPREMIX 10 MEQ/50 ML BAG IV SCH ×5 (17:06→22:23)
[2021-02-22] MEDS: Pantoprazole VIAL 40 MG VIAL IV SCH (17:14)
[2021-02-22] MEDS: Thiamine 100 MG/ML 2 ml VIAL 500 MG in NS 0.9% 250 ml 250 ML IV SCH ×2 (17:15→23:51)
[2021-02-22 17:40] LABS: Blood Urea Nitrogen 10 mg/dL (6-24); Calcium 6.6 mg/dL (8.6-10.3); Chloride 69 mmol/L (101-111); Glucose 136 mg/dL (70-100); Sodium 124 mmol/L (135-145)
[2021-02-22 17:57] LABS: CO2 Carbon Dioxide 45 mmol/L (22-32)
[2021-02-22 17:58] LABS: Anion Gap 10 mmol/L (2-11)
[2021-02-22] MEDS ORDERED: Lidocaine 1% VIAL 10 MG/ML VIAL ONE (18:04)
[2021-02-22] MEDS: Folic Acid IV 1 MG in NS 0.9% 50 ML 50 ML IVPB SCH (18:06)
[2021-02-22] MEDS ORDERED: Phytonadione IV (Adult) 10 MG in NS 0.9% 50 ML 50 ML IV ONE (19:30)
[2021-02-22] MEDS ORDERED: NS 0.9% 50 ML 50 ML ONE (19:45)
[2021-02-22] MEDS ORDERED: NS 0.9% 250 ml 250 ML ONE (19:45)
[2021-02-22] MEDS: Norepinephrine 16MCG/ML IVPRE 4,000 MCG/250 ML BAG IV SCH (20:00)
[2021-02-22] MEDS: Chlorhexidine MOUTHWASH 0.12% 15 ML UDC TOPICAL SCH (20:10)
[2021-02-22 20:39] LABS: Magnesium 2.1 mg/dL (1.9-2.7); Phosphorus 2.7 mg/dL (2.5-5.0)
[2021-02-22 20:41] LABS: Potassium Redraw 1.9 mmol/L (3.5-5.0)
[2021-02-22 20:42] LABS: PCO2 Arterial 40 mmHg (35-45)
[2021-02-22 20:44] LABS: PO2 Arterial 38 mmHg (80-100)
[2021-02-22] MEDS ORDERED: Enoxaparin 40 MG/0.4 ML SYR SUBCUT SCH (21:00)
[2021-02-22] MEDS ORDERED: Octreotide Acetate 50 MCG in NS 0.9% IV ONE (21:30)
[2021-02-22] MEDS: Albumin Human 25% 25 GM/100 ML BTL IV SCH ×2 (22:23→22:55)
[2021-02-22] MEDS: Octreotide Acetate 500 MCG in NS 0.9% 100 ml BAG 100 ML IV SCH (22:48)
[2021-02-22 23:15] LABS: eGFR CKD-EPI 91.2 (>60)
[2021-02-22 23:21] LABS: Potassium 2.2 mmol/L (3.5-5.0)
[2021-02-23] MEDS ORDERED: cefTRIAXone 2 GM ADDV.VIAL 2 GM in NS 0.9% 100 ml BAG 100 ML IV SCH
[2021-02-23] MEDS ORDERED: diPHENhydraMINE IV 50 MG/ML 1 ml VIAL (BENADRYL) IV ONE (00:03)
[2021-02-23] MEDS: KCL 10 MEQ/50 ML IVPREMIX 10 MEQ/50 ML BAG IV SCH ×8 (00:10→10:03)
[2021-02-23] MEDS ORDERED: ARGININE HCL IV ONE ×2 (00:30→18:00)
[2021-02-23] MEDS: Chlorhexidine MOUTHWASH 0.12% 15 ML UDC TOPICAL SCH ×7 (00:37→23:41)
[2021-02-23 00:54] LABS: PCO2 Arterial 46 mmHg (35-45); PO2 Arterial 67 mmHg (80-100)
[2021-02-23] MEDS: Norepinephrine 16MCG/ML IVPRE 4,000 MCG/250 ML BAG IV SCH ×5 (01:52→23:40)
[2021-02-23] MEDS ORDERED: Premix IV 0 ML ONE (03:17)
[2021-02-23] MEDS ORDERED: NS 0.9% 250 ml 250 ML ONE (03:17)
[2021-02-23] MEDS ORDERED: NS 0.9% 100 ml BAG 100 ML ONE (03:17)
[2021-02-23] MEDS: Meropenem 2 GM in NS 0.9% 100 ML IVPB SCH ×2 (04:57→12:09)
[2021-02-23 05:07] LABS: Blood Urea Nitrogen 13 mg/dL (6-24); Calcium 6.8 mg/dL (8.6-10.3); Chloride 78 mmol/L (101-111); Glucose 125 mg/dL (70-100); Potassium 3.1 mmol/L (3.5-5.0); Sodium 125 mmol/L (135-145); eGFR CKD-EPI 72.9 (>60)
[2021-02-23 05:08] LABS: ABS Basophils 0.1 10^3/ul (0-0.2); ABS Eosinophils 0.2 10^3/ul (0-0.6); ABS Lymphocytes 0.2 10^3/ul (1.0-4.8); ABS Monocytes 0.2 10^3/ul (0-0.8); ABS Neutrophils 18.7 10^3/ul (1.5-7.7); ABS Nucleated RBC 0.1 10^3/ul; Hematocrit 28 % (35-47); Hemoglobin 9.9 g/dL (12.0-16.0); Lymphocyte % 0.9 %; Mean Corpuscular HGB Conc 35 g/dL (31-36); Mean Corpuscular Hemoglobin 38 pg (27-31); Mean Corpuscular Volume 108 fL (80-97); Mean Platelet Volume 7.9 fL (7.4-10.4); Nucleated Red Blood Cells % 0.3; Platelet Count 102 10^3/uL (150-450); Red Blood Count 2.64 10^6 /uL (3.70-4.87); Red Cell Distribution Width 13 % (10-15); White Blood Count 19.5 10^3/uL (3.5-10.8)
[2021-02-23 05:10] LABS: Albumin 2.5 g/dL (3.2-5.2); Albumin/Globulin Ratio 1.4 (1-3); Calcium 6.8 mg/dL (8.6-10.3); Globulin 1.8 g/dL (2-4); Phosphorus 3.1 mg/dL (2.5-5.0); Potassium 2.9 mmol/L (3.5-5.0); Total Bilirubin 3.3 mg/dL (0.2-1.0); Total Protein 4.3 g/dL (6.4-8.9); eGFR CKD-EPI 78.2 (>60)
[2021-02-23] MEDS ORDERED: Propofol 10 mg/ml 100 ML BTL 100 ML ONE (05:13)
[2021-02-23 05:29] LABS: Anion Gap 7 mmol/L (2-11); CO2 Carbon Dioxide 40 mmol/L (22-32); Troponin I 0.06 ng/mL (<0.03)
[2021-02-23 06:27] LABS: PCO2 Arterial 45 mmHg (35-45); PO2 Arterial 76 mmHg (80-100)
[2021-02-23] MEDS: Pantoprazole VIAL 40 MG VIAL IV SCH (07:20)
[2021-02-23] MEDS: Octreotide Acetate 500 MCG in NS 0.9% 100 ml BAG 100 ML IV SCH ×2 (07:21→18:48)
[2021-02-23] MEDS: Thiamine 100 MG/ML 2 ml VIAL 500 MG in NS 0.9% 250 ml 250 ML IV SCH ×3 (07:21→23:41)
[2021-02-23] MEDS ORDERED: Phytonadione IV (Adult) 10 MG in NS 0.9% 50 ML 50 ML IV ONE (07:31)
[2021-02-23] MEDS: Folic Acid IV 1 MG in NS 0.9% 50 ML 50 ML IVPB SCH (08:56)
[2021-02-23] MEDS ORDERED: Albumin Human 25% 25 GM/100 ML BTL IV SCH (09:00)
[2021-02-23] MEDS: Albumin Human 25% 25 GM/100 ML BTL IV SCH ×2 (09:10→10:41)
[2021-02-23 09:15] LABS: Hematocrit 31 % (35-47); Hemoglobin 10.6 g/dL (12.0-16.0); Mean Corpuscular HGB Conc 34 g/dL (31-36); Mean Corpuscular Hemoglobin 37 pg (27-31); Mean Corpuscular Volume 110 fL (80-97); Mean Platelet Volume 7.8 fL (7.4-10.4); Platelet Count 110 10^3/uL (150-450); Red Blood Count 2.83 10^6 /uL (3.70-4.87); Red Cell Distribution Width 13 % (10-15); White Blood Count 22.4 10^3/uL (3.5-10.8)
[2021-02-23 09:30] LABS: Blood Urea Nitrogen 15 mg/dL (6-24); CO2 Carbon Dioxide 38 mmol/L (22-32); Calcium 6.8 mg/dL (8.6-10.3); Chloride 81 mmol/L (101-111); Glucose 122 mg/dL (70-100); Magnesium 1.9 mg/dL (1.9-2.7); Sodium 125 mmol/L (135-145); eGFR CKD-EPI 68.2 (>60)
[2021-02-23 09:48] LABS: ABS Basophils 0.1 10^3/ul (0-0.2); ABS Eosinophils 0.3 10^3/ul (0-0.6); ABS Lymphocytes 0.2 10^3/ul (1.0-4.8); ABS Monocytes 0.3 10^3/ul (0-0.8); ABS Neutrophils 21.5 10^3/ul (1.5-7.7); Eosinophil % 1.4 %; Nucleated Red Blood Cells % 0.2
[2021-02-23 09:50] LABS: Macrocytosis 1+
[2021-02-23 10:11] LABS: Anion Gap 6 mmol/L (2-11)
[2021-02-23 13:49] LABS: PCO2 Arterial 42 mmHg (35-45); PO2 Arterial 65 mmHg (80-100)
[2021-02-23] MEDS ORDERED: Vancomycin per Pharmacy 1 EA NOTE FOLLOW UP SCH (14:00)
[2021-02-23] MEDS ORDERED: Vancomycin 1,250 MG in NS 0.9% 250 ml 250 ML IVPB ONE (14:00)
[2021-02-23] MEDS ORDERED: Vancomycin per Pharmacy 1 EA NOTE FOLLOW UP PRN (18:58)
[2021-02-23 19:19] LABS: INR 3.43 (0.86-1.15)
[2021-02-23] MEDS: Propofol 10 mg/ml 100 ML BTL 100 ML IV SCH (19:31)
[2021-02-23 20:06] LABS: Body Fluid Mono 71 %; Body Fluid Total Cells Counted 68
[2021-02-23 21:07] LABS: Body Fluid Appearance Clear; Body Fluid Color Yellow
[2021-02-23 21:20] LABS: Body Fluid Source Peritonial Fluid
[2021-02-23 21:32] LABS: Body Fluid WBC 5 /mcL
[2021-02-23] MEDS: Aztreonam 2 GM in NS 0.9% 100 ML 100 ML IV SCH (21:42)
[2021-02-23] MEDS: Artificial Tear OPHTH.OINT 3.5 GM BOTH EYES PRN (23:41)
[2021-02-24] MEDS: Vancomycin 750 MG in NS 0.9% 250 ML IVPB SCH ×2 (01:48→13:41)
[2021-02-24] MEDS: Chlorhexidine MOUTHWASH 0.12% 15 ML UDC TOPICAL SCH ×5 (04:08→20:09)
[2021-02-24] MEDS: Octreotide Acetate 500 MCG in NS 0.9% 100 ml BAG 100 ML IV SCH ×2 (04:08→13:53)
[2021-02-24] MEDS: Aztreonam 2 GM in NS 0.9% 100 ML 100 ML IV SCH ×3 (04:39→20:08)
[2021-02-24 04:58] LABS: Hematocrit 29 % (35-47); Hemoglobin 10.2 g/dL (12.0-16.0); Mean Corpuscular HGB Conc 35 g/dL (31-36); Mean Corpuscular Hemoglobin 38 pg (27-31); Mean Corpuscular Volume 110 fL (80-97); Mean Platelet Volume 8.3 fL (7.4-10.4); Platelet Count 85 10^3/uL (150-450); Red Blood Count 2.67 10^6 /uL (3.70-4.87); Red Cell Distribution Width 13 % (10-15); White Blood Count 19.7 10^3/uL (3.5-10.8)
[2021-02-24] MEDS: Norepinephrine 16MCG/ML IVPRE 4,000 MCG/250 ML BAG IV SCH ×5 (04:58→20:55)
[2021-02-24 05:08] LABS: Blood Urea Nitrogen 25 mg/dL (6-24); CO2 Carbon Dioxide 36 mmol/L (22-32); Chloride 86 mmol/L (101-111); Glucose 114 mg/dL (70-100); Magnesium 1.9 mg/dL (1.9-2.7); Sodium 127 mmol/L (135-145); eGFR CKD-EPI 46.5 (>60)
[2021-02-24] MEDS: Propofol 10 mg/ml 100 ML BTL 100 ML IV SCH (05:29)
[2021-02-24 05:54] LABS: RBC Morphology Normal (Normal)
[2021-02-24 05:55] LABS: ABS Lymphocytes 0.3 10^3/ul (1.0-4.8); ABS Monocytes 0.3 10^3/ul (0-0.8); ABS Neutrophils 19.1 10^3/ul (1.5-7.7); Lymphocyte % 1.4 %; Nucleated Red Blood Cells % 0.1
[2021-02-24 05:56] LABS: Anion Gap 5 mmol/L (2-11)
[2021-02-24] MEDS: Pantoprazole VIAL 40 MG VIAL IV SCH (07:22)
[2021-02-24] MEDS: Artificial Tear OPHTH.OINT 3.5 GM BOTH EYES PRN ×3 (07:22→18:03)
[2021-02-24 07:38] LABS: PCO2 Arterial 56 mmHg (35-45)
[2021-02-24 07:40] LABS: PO2 Arterial Temp Correct <38 mmHg (80-100)
[2021-02-24] MEDS: Folic Acid IV 1 MG in NS 0.9% 50 ML 50 ML IVPB SCH (07:50)
[2021-02-24] MEDS: Thiamine 100 MG/ML 2 ml VIAL 500 MG in NS 0.9% 250 ml 250 ML IV SCH ×2 (07:50→18:01)
[2021-02-24] MEDS ORDERED: Propofol 10 mg/ml 100 ML BTL 100 ML IV SCH (08:00)
[2021-02-24] MEDS ORDERED: Furosemide 100 mg/10 ml IV VIAL IV ONE (08:22)
[2021-02-24 08:42] LABS: Phosphorus 2.6 mg/dL (2.5-5.0); Potassium Redraw 4.1 mmol/L (3.5-5.0)
[2021-02-24] MEDS: Albumin Human 25% 25 GM/100 ML BTL IV SCH ×2 (09:08→09:55)
[2021-02-24] MEDS: Lactulose 300 ML for PR 200 GM/300 ML BTL PR SCH ×2 (09:14→13:37)
[2021-02-24] MEDS ORDERED: Phytonadione IV (Adult) 10 MG in NS 0.9% 50 ML 50 ML IV ONE (17:01)
[2021-02-25] MEDS: Thiamine 100 MG/ML 2 ml VIAL 500 MG in NS 0.9% 250 ml 250 ML IV SCH ×2 (00:07→09:30)
[2021-02-25] MEDS: Norepinephrine 16MCG/ML IVPRE 4,000 MCG/250 ML BAG IV SCH ×2 (00:07→02:57)
[2021-02-25] MEDS: Octreotide Acetate 500 MCG in NS 0.9% 100 ml BAG 100 ML IV SCH (00:12)
[2021-02-25] MEDS: Chlorhexidine MOUTHWASH 0.12% 15 ML UDC TOPICAL SCH ×3 (00:12→08:58)
[2021-02-25] MEDS ORDERED: Vancomycin Trough Check NOTE FOLLOW UP ONE (01:30)
[2021-02-25 01:54] LABS: Calcium 7.4 mg/dL (8.6-10.3); Magnesium 1.8 mg/dL (1.9-2.7)
[2021-02-25 01:55] LABS: Potassium 3.6 mmol/L (3.5-5.0)
[2021-02-25 02:00] LABS: Vancomycin Trough 28.7 mcg/mL; eGFR CKD-EPI 34.8 (>60)
[2021-02-25 02:07] LABS: Phosphorus 2.6 mg/dL (2.5-5.0)
[2021-02-25] MEDS: Vancomycin 750 MG in NS 0.9% 250 ML IVPB SCH (02:18)
[2021-02-25] MEDS ORDERED: Meropenem 2 GM in NS 0.9% 100 ML BAG IVPB ONE (04:00)
[2021-02-25 04:29] LABS: INR 3.87 (0.86-1.15)
[2021-02-25] MEDS ORDERED: Norepinephrine *QUAD STRENGTH* 16 mg/250 mL NS per protocol IV SCH (05:00)
[2021-02-25 05:58] LABS: PCO2 Arterial 40 mmHg (35-45)
[2021-02-25 06:00] LABS: Hematocrit 28 % (35-47); Hemoglobin 9.8 g/dL (12.0-16.0); Mean Corpuscular HGB Conc 35 g/dL (31-36); Mean Corpuscular Hemoglobin 39 pg (27-31); Mean Corpuscular Volume 110 fL (80-97); Mean Platelet Volume 8.4 fL (7.4-10.4); Platelet Count 63 10^3/uL (150-450); Red Blood Count 2.53 10^6 /uL (3.70-4.87); Red Cell Distribution Width 13 % (10-15); White Blood Count 14.5 10^3/uL (3.5-10.8)
[2021-02-25 06:01] LABS: PO2 Arterial 42 mmHg (80-100)
[2021-02-25 06:29] LABS: ABS Eosinophils 0.1 10^3/ul (0-0.6); ABS Lymphocytes 0.3 10^3/ul (1.0-4.8); ABS Monocytes 0.1 10^3/ul (0-0.8); ABS Neutrophils 13.5 10^3/ul (1.5-7.7); Eosinophil % 0.7 %; Nucleated Red Blood Cells % 0.2
[2021-02-25 07:11] VITALS: BP 101/52
[2021-02-25] MEDS: Pantoprazole VIAL 40 MG VIAL IV SCH (08:58)
[2021-02-25] MEDS ORDERED: Morphine 10 MG/ML VIAL (1 ml) IV ONE (11:13)
[2021-02-25] MEDS ORDERED: LORazepam 2 mg VIAL 1 ml IV PUSH ONE (11:13)
[2021-02-25] MEDS ORDERED: Lorazepam PYXIS KEY PRN (11:13)
[2021-02-25] MEDS ORDERED: Aztreonam 2 GM in NS 0.9% 100 ML 100 ML IV SCH (12:00)
[2021-02-25 13:05] LABS: Glucose, BF 129 mg/dL
[2021-02-25 13:06] LABS: Fluid Type, Protein, Total PERITONEAL; Total Protein, BF 0.5 g/dL
[2021-02-25] MEDS ORDERED: Vancomycin 750 MG in NS 0.9% 250 ML IVPB SCH (13:30)
[2021-02-26 09:39] LABS: Lactate Dehydrogenase, BF 32 U/L
== END 2021-02-25 11:41 | disposition expired | DRG 710 ==
LOC: ED 12:15 → EDHOLD 14:57 → ICU 16:06
PROVIDERS: ADMIT Internal Medicine; ATTEND Internal Medicine